=== PATIENT | female | born 1930 | race Caucasian/White ===

== ENCOUNTER 2017-01-12 20:36 | Emergency (ER) | payer MEDICARE, BC ==
[~2017-01-12] VITALS: Ht 157.5 cm; Wt 63.0 kg
[~2017-01-12 20:36] MED LIST: ACULAR10 ML OU; ASPIRIN81 MG PO; COMBIVENT RESPIM4 GM IH; GLUCOPHAGE850 MG PO; LINZESS145 MCG PO; LIVALO2 MG PO; LOZOL2.5 M1 DOB; NAPROSYN250 M1 PO; SYNTHROID75 MCG; SYSTANE ULTRA 010 M1 OP; VOLTAREN100 GM TP
[2017-01-12] MEDS ORDERED: CLOPIDOGREL75 MG (20:51)
[2017-01-12] MEDS ORDERED: POTASSIUM CHLO10 ME1 (20:53)
[2017-01-12] MEDS ORDERED: LOPRESSOR PO (20:53)
[2017-01-12 21:50] LABS: BASOPHIL# 0.1 X10e3 (0-0.3); BASOPHIL% 0.9 % (0-2.5); EOSINOPHIL# 0.3 X10e3 (0-0.7); EOSINOPHIL% 4.6 % (0.0-7.0); HEMATOCRIT 41.5 % (35.0-45.0); HEMOGLOBIN 14.5 gm/dL (12.0-16.0); LYMPHOCYTE# 2.5 X10e3 (1.0-3.5); MEAN CELL VOLUME 85.3 FL (83-96); MEAN CORPUSCULAR HEMOGLOBIN 29.7 PG (28-34); MEAN CORPUSCULAR HGB CONC 34.8 g/dL (30-36); MONOCYTE# 0.5 X10e3 (0-1.0); MONOCYTE% 8.1 % (3.0-12.0); NEUTROPHIL% 46.4 % (40-75); PLATELET COUNT 136 X10e3 (140-420); RED BLOOD COUNT 4.87 X10e (3.90-5.30); RED CELL DISTRIBUTION WIDTH 13.4 % (11.0-15.5); WHITE BLOOD COUNT 6.4 X10e3 (4.0-10.5)
[2017-01-12 21:53] LABS: DIFF IND NO
[2017-01-12 22:08] LABS: ALBUMIN SERUM 3.9 g/dL (3.5-5.0); BILIRUBIN, DIRECT 0.1 mg/dL (0.0-0.2); BILIRUBIN,INDIRECT 0.8 mg/dL (0.0-0.9); BILIRUBIN,TOTAL 0.9 mg/dL (0.2-2.0); BUN/CREATININE RATIO 14.44; CALCIUM SERUM 9.4 mg/dL (8.4-10.2); CREATININE SERUM 0.9 mg/dL (0.6-1.4); GLOM FILT RATE Estimated 58.8 mL/min (>60); POTASSIUM 3.1 mmol/L (3.5-5.1); PROTEIN TOTAL SERUM 7.3 g/dL (6.0-8.3)
== END 2017-01-12 23:04 | disposition home or self-care (01) ==
LOC: SED 20:36
PROVIDERS: Emergency Medicine
DX: E87.6 Hypokalemia (principal); R60.0 Localized edema; Z88.0 Allergy status to penicillin; Z79.899 Other long term (current) drug therapy
CPT/HCPCS: 80048; 80076; 83880; 85025; 99283